=== PATIENT | male | born 1950 | race Caucasian/White ===

== ENCOUNTER 2017-07-30 13:13 | Day surgery (SDC) | payer OTHER ==
[~2017-07-30] VITALS: Ht 182.9 cm; Wt 118.7 kg
[~2017-07-30 13:13] MED LIST: ACET250 PO; ATEN25 PO; Amlodipine Besy10 MG PO; CALCAVITD PO; CLOB.05TO TP; Daily Multiple1 EACH PO; FINA5 PO; IBUP800 PO; LEVSOD75 PO; LOSHYD100 PO; METO25ER; MULVITMINE PO; NAPR500; OMEP20ER PO; SIMV10 PO; Simvastatin20 MG PO; TRIA80TC
== END 2017-07-30 16:00 | disposition home or self-care (01) ==
LOC: ORSCSDS 13:13
PROVIDERS: Internal Medicine Gastroenterology
PROC: 0DBH8ZX Excision of Cecum, Via Natural or Artificial Opening Endoscopic, Diagnostic (ICD-10-PCS; principal; 2017-07-30 15:00)
PROC: 0DBK8ZX Excision of Ascending Colon, Via Natural or Artificial Opening Endoscopic, Diagnostic (ICD-10-PCS; principal; 2017-07-30 15:00)
PROC: 0DBM8ZX Excision of Descending Colon, Via Natural or Artificial Opening Endoscopic, Diagnostic (ICD-10-PCS; principal; 2017-07-30 15:00)
DX: Z12.11 Encounter for screening for malignant neoplasm of colon (principal); D12.0 Benign neoplasm of cecum; D12.2 Benign neoplasm of ascending colon; D12.4 Benign neoplasm of descending colon; K57.30 Diverticulosis of large intestine without perforation or abscess without bleeding; Z86.010 Personal history of colon polyps; I10 Essential (primary) hypertension; G47.33 Obstructive sleep apnea (adult) (pediatric); Z79.899 Other long term (current) drug therapy
CPT/HCPCS: 88305; J7120

== ENCOUNTER 2022-11-15 12:16 | Day surgery (SDC) | payer OTHER ==
[~2022-11-15] VITALS: Ht 177.8 cm; Wt 113.3 kg
--- NOTE | 2022-11-15 13:55 | NUR ---
11/15/22 1355 TERENCE CALIXTO PT 3 LEAD EKG ABNORMAL. [address] OROZCO WAS GIVEN THE 12 LEAD AND COMPARED TO PT HX. STATES R BBB, NOTED ON STRESS TEST, WE CAN DO PROCEDURE. NO BIG DEAL.
[2022-11-15 15:28] VITALS: BP 106/75
== END 2022-11-15 14:50 | disposition home or self-care (01) ==
LOC: ORSCSDS 12:16
PROVIDERS: Internal Medicine Gastroenterology
PROC: 0DBP8ZX Excision of Rectum, Via Natural or Artificial Opening Endoscopic, Diagnostic (ICD-10-PCS; principal; 2022-11-15 13:45)
PROC: 0DBN8ZX Excision of Sigmoid Colon, Via Natural or Artificial Opening Endoscopic, Diagnostic (ICD-10-PCS; principal; 2022-11-15 13:45)
PROC: 0DBM8ZX Excision of Descending Colon, Via Natural or Artificial Opening Endoscopic, Diagnostic (ICD-10-PCS; principal; 2022-11-15 13:45)
DX: Z12.11 Encounter for screening for malignant neoplasm of colon (principal); Z86.010 Personal history of colon polyps; D12.4 Benign neoplasm of descending colon; D12.5 Benign neoplasm of sigmoid colon; K62.1 Rectal polyp; K57.30 Diverticulosis of large intestine without perforation or abscess without bleeding; G47.33 Obstructive sleep apnea (adult) (pediatric); K21.9 Gastro-esophageal reflux disease without esophagitis; E66.9 Obesity, unspecified; Z68.35 Body mass index [BMI] 35.0-35.9, adult; Z79.84 Long term (current) use of oral hypoglycemic drugs; Z79.899 Other long term (current) drug therapy
CPT/HCPCS: 82947; 88305; 93005; 93010; J2704; J7120